=== PATIENT | female | born 1985 | race Caucasian/White ===

== ENCOUNTER 2020-01-27 13:50 | Outpatient (REF) | payer MEDICAID, SELFPAY ==
--- NOTE | 2020-01-27 14:00 | MM_ITS ---
EXAMINATION: MM DIAGNOSTIC DIGITAL BREAST TOMOSYNTHESIS, BILATERAL WITH DIAGNOSTIC STUDY OF THE RIGHT BREAST WELL RIGHT BREAST ULTRASOUND. CLINICAL INFORMATION: Breast lumps The lifetime risk of breast cancer based on the Tyrer-Cuzick Model is 12.8%. COMPARISON: Mammography: 01/04/2016. Patient has had interval studies performed at [facility] and these images will be obtained with addendum and final recommendation given at that time. TECHNIQUE: Digital breast tomosynthesis is performed in both the craniocaudal and mediolateral oblique views along with computer-aided detection (CAD). Synthesized 2D images are generated from the tomosynthesis. Spot magnification views of the right breast in craniocaudal and mediolateral projections also performed. Targeted right breast ultrasound. FINDINGS: The breasts are heterogeneously dense, which may obscure small masses (ACR BI-RADS breast composition Category c). No new abnormal dominant mass or region of architectural distortion is appreciated. There is multiplicity and bilaterality of vascular calcifications with a few new grouping of calcifications about the superior medial aspect of the right breast adjacent to a vessel but not definitely vascular in nature. Recommend obtaining outside study from [facility] for comparison before final recommendation. Targeted ultrasound evaluation to multiple regions of palpable abnormality was then performed. At the 9 o'clock position 6 cm from nipple there is a simple appearing cyst measuring approximately 6 x 2 x 8 mm in size with anechoic lumen and smooth back wall and distal sound enhancement and no internal vascularity. At the 12 o'clock location, approximately 3 cm from the nipple there is a 9 x 4 mm minimally complex cyst with thin septation. No ultrasound abnormality was identified at the 3 o'clock position. Results are provided to the patient at time of visit by the technologist. MM/MM tomosynthesis diagnostic BI IMPRESSION: No specific ultrasound findings to suggest malignancy. Increasing calcifications about the right breast compared to study of 2016 with some interval studies been performed at [facility] since then would be obtained for comparison. ASSESSMENT: BI-RADS 0: Incomplete -waiting for old films RECOMMENDATION: Obtain outside studies from [facility]. This patient's information was entered into a reminder system with a target due date for their next mammogram.
--- NOTE | 2020-01-27 14:01 | US_ITS ---
EXAMINATION: US DIAGNOSTIC ULTRASOUND BREAST, RIGHT CLINICAL INFORMATION: Pain with palpation 9 o'clock position and position in between 12 and 1 o'clock. 1 cm lump palpated at 3 o'clock position. COMPARISON: 01/04/2016 TECHNIQUE: Ultrasound of the right breast is performed with real-time benson scale imaging and color Doppler. FINDINGS: Targeted ultrasound evaluation to multiple regions of palpable abnormality was then performed. At the 9 o'clock position 6 cm from nipple there is a simple-appearing cyst measuring approximately 6 x 2 x 8 mm in size with anechoic lumen and smooth back wall and distal sound enhancement and no internal vascularity. At the 12 o'clock location approximately 3 cm from the nipple there is a 9 x 4 mm minimally complex cyst with thin septation. No ultrasound abnormality was identified at the 3 o'clock position. Results are provided to the patient at time of visit by the technologist. US/US breast RT limited IMPRESSION: No specific ultrasound findings to suggest malignancy. Increasing calcifications about the right breast compared to study of 2016 with some interval studies been performed at [facility] since then would be obtained for comparison. ASSESSMENT: BI-RADS 0: Incomplete - Need outside studies for further evaluation. RECOMMENDATION: Obtain outside studies from [facility].
== END 2020-01-27 13:51 | disposition home or self-care (01) ==
LOC: HO.MAMMO 13:50
PROVIDERS: PCP Internal Medicine; Visit Provider Nurse Practitioner Family
DX: N64.4 Mastodynia (principal); N63.10 Unspecified lump in the right breast, unspecified quadrant
CPT/HCPCS: 76642; 77062; 77066

== ENCOUNTER 2020-02-17 13:57 | Outpatient (REF) | payer MEDICAID, SELFPAY ==
--- NOTE | 2020-02-17 | MM_ITS ---
EXAMINATION: MM DIAGNOSTIC DIGITAL MAMMOGRAPHY, RIGHT CLINICAL INFORMATION: Unable to obtain previous mammography. Magnification views for calcifications of the right breast for better localization. COMPARISON: Mammography: January 27, 2020 and January 04, 2016 TECHNIQUE: Digital mammography is performed in the following views: Spot magnification views in craniocaudal, 90 degree mediolateral, and mediolateral oblique views of the right breast. FINDINGS: The breasts are heterogeneously dense, which may obscure small masses (ACR BI-RADS breast composition Category c). The questioned grouping of calcifications about the retroareolar region of the right breast are seen to have similar appearance to multiple other groupings of calcifications within the breast and some of which have lucent centers and may be vascular in nature. Recommend 6 month follow-up magnification views of the right breast. Results are provided to the patient at time of visit by the technologist. MM/MM added views RT IMPRESSION: Probably benign calcifications right breast. ASSESSMENT: BI-RADS 3: Probably Benign RECOMMENDATION: Diagnostic mammography in 6 months. This patient's information was entered into a reminder system with a target due date for their next mammogram.
== END 2020-02-17 13:58 | disposition home or self-care (01) ==
LOC: HO.MAMMO 13:57
PROVIDERS: PCP Internal Medicine; Visit Provider Internal Medicine
DX: R92.1 Mammographic calcification found on diagnostic imaging of breast (principal)
CPT/HCPCS: 77065

== ENCOUNTER 2020-06-26 11:47 | Emergency (ER) | payer MEDICAID, SELFPAY ==
[2020-06-26 12:29] VITALS: BP 127/90; PULSE 62; RESP 16; TEMP 36.9; O2SAT 100; BMI 22.9
== END 2020-06-26 15:38 | disposition left against medical advice (07) ==
PROVIDERS: Emergency Provider Emergency Medicine
DX: R07.9 Chest pain, unspecified (principal); R42 Dizziness and giddiness; T50.B95A Adverse effect of other viral vaccines, initial encounter; Y92.019 Unspecified place in single-family (private) house as the place of occurrence of the external cause
CPT/HCPCS: 99281; 99282

== ENCOUNTER 2020-08-15 12:01 | Outpatient (REF) | payer MEDICAID, SELFPAY ==
--- NOTE | ~2020-08-15 | MM_ITS ---
EXAMINATION: MM DIAGNOSTIC DIGITAL BREAST TOMOSYNTHESIS, RIGHT CLINICAL INFORMATION: 35-year-old for short interval follow-up probable benign calcifications central and inner right breast. Family history breast cancer maternal aunt. TC score 13%. COMPARISON: Mammography: 02/17/2020, 01/27/2020, 01/04/2016 TECHNIQUE: Digital breast tomosynthesis is performed in both the craniocaudal and mediolateral oblique views along with computer-aided detection (CAD). Synthesized 2D images are generated from the tomosynthesis. Additional magnification CC and magnification ML views are obtained. FINDINGS: There are scattered areas of fibroglandular density (ACR BI-RADS breast composition Category b). There are the parenchymal pattern is similar to prior studies. There is no developing density or interval mass or architectural abnormality. There are some scattered vascular calcifications again seen on the right. The grouped calcifications for follow-up anterior 12:30 o'clock position and mid 3:00 right breast are stable from prior diagnostic exam. They will be reassessed again in 6 months at time of annual bilateral exam. Results are provided to the patient at time of visit by the technologist. MM/MM tomosynthesis diagnostic RT IMPRESSION: No significant changes from prior exam. Probable benign right breast calcifications stable. ASSESSMENT: BI-RADS 3: Probably Benign RECOMMENDATION: Diagnostic mammography at time of annual bilateral exam, due in 6 months. This patient's information was entered into a reminder system with a target due date for their next mammogram.
== END 2020-08-15 12:02 | disposition home or self-care (01) ==
LOC: HO.MAMMO 12:01
PROVIDERS: Visit Provider Nurse Practitioner Family
DX: R92.1 Mammographic calcification found on diagnostic imaging of breast (principal); Z80.3 Family history of malignant neoplasm of breast
CPT/HCPCS: 77061; 77065

== ENCOUNTER 2020-08-27 12:59 | Outpatient (REF) | payer MEDICAID, SELFPAY ==
--- NOTE | ~2020-08-27 | US_ITS ---
EXAMINATION: US VENOUS ULTRASOUND WITH DOPPLER LOWER EXTREMITY, BILATERAL CLINICAL INFORMATION: Bilateral lower extremity pain COMPARISON: None TECHNIQUE: Ultrasound of the deep veins is performed from the hip to the calf with compression sonography and color and pulse Doppler assessment. Spectral analysis with color-flow imaging is performed. FINDINGS: RIGHT: There is normal venous compression and respiratory variation and augmented flow. The visualized common femoral vein, superficial femoral vein, profunda femoral vein, popliteal vein, and the trifurcation region shows no evidence of deep venous thrombosis. There is no significant popliteal fossa cyst. No popliteal artery aneurysm LEFT: There is normal venous compression and respiratory variation and augmented flow. The visualized common femoral vein, superficial femoral vein, profunda femoral vein, popliteal vein, and the trifurcation region shows no evidence of deep venous thrombosis. There is no significant popliteal fossa cyst. No popliteal artery aneurysm If the patient's symptoms persist, followup ultrasound in 5 days 7 days might be of value to exclude proximal propagation from a non-visualized calf vein. US/US venous duplex LE BI IMPRESSION: No acute DVT demonstrated in the bilateral lower extremity.
== END 2020-08-27 13:00 | disposition home or self-care (01) ==
LOC: HO.US 12:59
PROVIDERS: PCP Internal Medicine; Visit Provider Nurse Practitioner Primary Care
DX: M79.604 Pain in right leg (principal); M79.605 Pain in left leg
CPT/HCPCS: 93970

== ENCOUNTER → 2020-09-13 10:23 | Outpatient (BNVA) | payer MEDICAID, SELFPAY | PROVIDERS: PCP Internal Medicine; Visit Provider Surgery Vascular Surgery | DX: I83.11 Varicose veins of right lower extremity with inflammation (principal) | CPT/HCPCS: 99202 ==

== ENCOUNTER 2020-10-08 07:23 | Outpatient (REF) | payer MEDICAID, SELFPAY ==
--- NOTE | ~2020-10-08 | US_ITS ---
EXAMINATION: RIGHT and LEFT LOWER EXTREMITY VENOUS ULTRASOUND (Reflux Exam) CLINICAL INDICATION: leg pain and varicose veins. COMPARISON: None. TECHNIQUE: Color flow triplex imaging and compression Doppler was performed to evaluate both the deep and the superficial systems bilaterally. To evaluate the superficial system, the examination was performed in the upright position. Color-flow Doppler ultrasound and compression ultrasound were utilized. In addition, maneuvers were utilized to demonstrate reflux. FINDINGS: 1. DEEP VENOUS ULTRASOUND OF THE RIGHT LOWER EXTREMITY: Respiratory variation, normal compression and augmented flow are noted in the right common femoral vein as well as the right popliteal vein and there is no evidence of deep venous thrombosis at these locations. There is no evidence of reflux in the deep system in either the common femoral vein or the popliteal vein. There is no evidence of a Brown's cyst. 2. SUPERFICIAL ULTRASOUND WITH DOPPLER OF RIGHT LOWER EXTREMITY: The right great saphenous vein at the saphenofemoral junction measures 5 mm, at the mid thigh 3 mm, hwaeu-pgt-zuoa 2 mm, luryw-ndq-[id number] 2 mm, at mid calf 2 mm and at the ankle measures 2 mm. There is no reflux demonstrated in the right great saphenous vein. The right small saphenous vein measures 1-2 mm and shows no reflux. There is a forensic medical examiner in the proximal thigh diffuse 2 mm and does not demonstrate reflux. 3. DEEP VENOUS ULTRASOUND OF THE LEFT LOWER EXTREMITY: Respiratory variation, normal compression and augmented flow are noted in the left common femoral vein as well as the left popliteal vein and there is no evidence of deep venous thrombosis at these locations. There is no evidence of reflux in the deep system in either the common femoral vein or the popliteal vein. . There is no evidence of a Brown's cyst. 4. SUPERFICIAL ULTRASOUND WITH DOPPLER OF LEFT LOWER EXTREMITY: Left great saphenous vein at the saphenofemoral junction measures 4 mm, at the mid thigh to mm, nkqfk-lrt-dxfn 3 mm, mhhtg-sli-uvpz 1 mm, at mid calf 1 mm and at the ankle measures 1 mm. There is no reflux demonstrated in the left great saphenous vein. The left small saphenous vein measures 1 mm and shows no reflux. US/US venous duplex LE BI IMPRESSION: 1. No evidence of reflux or thrombus in the common femoral veins or popliteal veins bilaterally. 2. The saphenous systems are competent bilaterally.
== END 2020-10-08 07:24 | disposition home or self-care (01) ==
LOC: HO.US 07:23
PROVIDERS: Visit Provider Surgery Vascular Surgery
DX: I83.11 Varicose veins of right lower extremity with inflammation (principal)
CPT/HCPCS: 93970

== ENCOUNTER → 2020-10-16 10:24 | Outpatient (BNVA) | payer MEDICAID, SELFPAY | PROVIDERS: PCP Internal Medicine; Visit Provider Surgery Vascular Surgery | DX: I83.11 Varicose veins of right lower extremity with inflammation (principal) | CPT/HCPCS: 99212 ==

== ENCOUNTER 2021-02-14 12:50 | Outpatient (REF) | payer MEDICAID, SELFPAY ==
--- NOTE | ~2021-02-14 | MM_ITS ---
EXAMINATION: MM DIAGNOSTIC DIGITAL BREAST TOMOSYNTHESIS, BILATERAL CLINICAL INFORMATION: Due for yearly. Also follow-up probable benign calcifications central and inner right breast. The lifetime risk of breast cancer based on the Tyrer-Cuzick Model is 13%. COMPARISON: Mammography: 08/15/2020, 02/17/2020, 01/27/2020 (BI-RADS 0), 01/04/2016 (baseline). TECHNIQUE: Digital breast tomosynthesis is performed in both the craniocaudal and mediolateral oblique views along with computer-aided detection (CAD). Synthesized 2D images are generated from the tomosynthesis. Additional magnification right CC and magnification right ML views are obtained. FINDINGS: There are scattered areas of fibroglandular density (ACR BI-RADS breast composition Category b). Parenchymal pattern is similar to prior exams and there is no interval mass or architectural abnormality or developing density. The axilla are unremarkable. The skin contours are smooth. There are no significant changes. Again, there are scattered bilateral vascular and grouped relatively coarse calcifications, many with lucent centers. Calcifications on right for follow-up anterior 12:30 o'clock position and mid 3:00 position are similar to prior diagnostic exams and will be reassessed again at next bilateral annual mammography, due in 12 months. Results are provided to the patient at time of visit by the technologist. MM/MM tomosynthesis diagnostic BI IMPRESSION: There are no significant changes from prior study. Probable benign right breast calcifications for follow-up are stable. ASSESSMENT: BI-RADS 3: Probably Benign RECOMMENDATION: Diagnostic mammography at time of next annual exam, due in 12 months. This patient's information was entered into a reminder system with a target due date for their next mammogram.
== END 2021-02-14 12:51 | disposition home or self-care (01) ==
LOC: HO.MAMMO 12:50
PROVIDERS: PCP Internal Medicine; Visit Provider Nurse Practitioner Family
DX: R92.1 Mammographic calcification found on diagnostic imaging of breast (principal)
CPT/HCPCS: 77062; 77066

== ENCOUNTER 2021-08-14 08:45 | Outpatient (REF) | payer MEDICAID, SELFPAY ==
--- NOTE | 2021-08-14 | EMG_ITS ---
This is a 36-year-old woman with 1 year history of pain in the whole body, upper and lower extremities diffusely that occurs about twice a week, lasting 15 to 20 minutes. PHYSICAL EXAMINATION: Neurological examination is normal. Probable fibromyalgia, rule out peripheral neuropathy. Nerve conduction EMG study: Normal electrodiagnostic study of the left upper and left lower extremities with no evidence of carpal tunnel syndrome or nerve entrapment or generalized neuropathy. Normal EMG of the left C5-T1 and left L4-S1 innervated muscles. MD HIMANSHU Bliss/CYRUS / [id number]
== END 2021-08-14 08:46 | disposition home or self-care (01) ==
LOC: HO.NEURO 08:45
PROVIDERS: PCP Internal Medicine; Visit Provider Internal Medicine
DX: M79.604 Pain in right leg (principal); M79.605 Pain in left leg; M79.641 Pain in right hand; M79.642 Pain in left hand
CPT/HCPCS: 95886; 95913

== ENCOUNTER 2022-02-17 12:17 | Outpatient (REF) | payer MEDICAID, SELFPAY ==
--- NOTE | ~2022-02-17 | MM_ITS ---
EXAMINATION: MM DIAGNOSTIC DIGITAL BREAST TOMOSYNTHESIS, BILATERAL US DIAGNOSTIC ULTRASOUND BREAST, LEFT CLINICAL INFORMATION: 36-year-old with family history premenopausal breast cancer (maternal aunt), ovarian cancer (mother), other cancers. Probable benign calcifications right breast for follow-up. COMPARISON: Mammography: 02/14/2021, 08/15/2020, 02/17/2020, 01/27/2020 (BI-RADS 0), 01/04/2016 TECHNIQUE: Digital breast tomosynthesis is performed in both the craniocaudal and mediolateral oblique views along with computer-aided detection (CAD). Synthesized 2D images are generated from the tomosynthesis. Additional views are obtained: Magnification right CC, magnification right LM x2. Ultrasound left breast is targeted to the anterior medial breast. Grayscale imaging and color Doppler are performed without and with harmonics. FINDINGS: There are scattered areas of fibroglandular density (ACR BI-RADS breast composition Category b). There are scattered bilateral stable calcifications similar to prior exams. Right breast calcifications for follow-up anterior 12:30 and mid 3:00 are similar to prior diagnostic studies and now considered to be benign. There is no architectural abnormality or developing density. The axilla and skin contours are unremarkable. Left breast has new small circumscribed nodule under 1 cm central 3:00 position approximately 3 cm from nipple. No interval nodularity on right. Ultrasound left breast confirms a simple cyst 3:00 position 3 cm from nipple approximately 0.4 cm corresponding to the finding on mammography. There is no solid mass or architectural abnormality or focal duct ectasia. Results are discussed with the patient at time of visit. Genetic testing options were discussed. MM/MM tomosynthesis diagnostic BI IMPRESSION: -No mammographic evidence of malignancy. -Right breast calcifications for follow-up are similar to prior diagnostic studies and now considered to be benign. -New simple cyst left breast 3:00 position under 1 cm. ASSESSMENT: BI-RADS 2: Benign RECOMMENDATION: Bilateral mammography, no later than age 40, earlier as clinical risk factors warrant. This patient's information was entered into a reminder system with a target due date for their next mammogram.
== END 2022-02-17 12:18 | disposition home or self-care (01) ==
LOC: HO.MAMMO 12:17
PROVIDERS: PCP Internal Medicine; Visit Provider Internal Medicine
DX: R92.1 Mammographic calcification found on diagnostic imaging of breast (principal)
CPT/HCPCS: 76642; 77062; 77066

== ENCOUNTER 2022-06-09 09:28 | Emergency (ER) | payer MEDICAID, SELFPAY ==
[2022-06-09 09:29] VITALS: BP 151/99; PULSE 100; RESP 16; TEMP 36.8; O2SAT 97; BMI 24.6
--- NOTE | 2022-06-09 09:45 | ED.GENADULT ---
HPI - General Adult General Chief complaint: General Medical Stated complaint: diff swallowing Time Seen by Provider: 06/09/22 09:44 Source: patient Mode of arrival: ambulatory Limitations: no limitations History of Present Illness HPI narrative: Patient is a 36 year old assigned female at with no reported medical history presenting to the emergency department today with a sore throat. Patient states that for the last 5 days she has had a sore throat and pain with swallowing. Patient denies any dizziness, lightheadedness, abdominal pain, nausea, vomiting, fever, chills, blurry vision, double vision, loss of vision, chest pain, difficulty breathing, shortness of breath, back pain, night sweats, pain with urination, increased urinary frequency, increased urinary urgency, blood in her urine or stool, syncope or a near syncopal episode, recent trauma or falls, bowel incontinence, bladder incontinence, bowel retention, bladder retention, or any other complaints at this time. Onset (ago): day(s) (5) Severity: mild Severity scale (1-10): 2 Quality: dull Pain Consistency: constant Relieving factors: none Exacerbating factors: none Associated symptoms: denies other symptoms Treatments prior to arrival: none Related Data Home Medications Medication Instructions Recorded Confirmed naproxen 125 mg/5 mL oral 250 mg PO BID PRN 09/13/20 suspension Previous Rx's Medication Instructions Recorded penicillin V potassium 500 mg 500 mg PO BID 10 days #20 tabs 06/09/22 tablet prednisone 20 mg tablet 20 mg PO DAILY 7 days #7 tabs 06/09/22 Allergies Allergy/AdvReac Type Severity Reaction Status Date / Time acetaminophen Allergy Unknown hives Verified 09/13/20 10:31 [Tylenol Cold Head Congestion] dextromethorphan Allergy Unknown HIVES * Unverified 09/13/20 10:31 [From TYLENOL COLD CAN TAKE MULTI-SYMPTOM] TYLENOL ALONE guaifenesin Allergy Unknown HIVES Unverified 09/13/20 10:31 [From TYLENOL COLD MULTI-SYMPTOM] phenylephrine Allergy Unknown HIVES Unverified 09/13/20 10:31 [From TYLENOL COLD MULTI-SYMPTOM] pseudoephedrine Allergy Unknown HIVES Unverified 09/13/20 10:31 [From TYLENOL COLD MULTI-SYMPTOM] Review of Systems Constitutional: Constitutional: Reports no additional constitutional complaints, Denies chills, Denies fever(s) and Denies night sweats Eyes: Eyes: Reports no additional eye complaints, Denies blurry vision, Denies change in vision, Denies diplopia, Denies eye discharge, Denies loss of vision and Denies eye pain ENT: Denies dizziness and Reports sore throat Cardiovascular: Cardiovascular: Reports no additional cardiovascular complaints, Denies chest pain, Denies lightheadedness, Denies Loss of Consciousness and Denies dyspnea Respiratory: Respiratory: Reports no additional respiratory complaints and Denies dyspnea Gastrointestinal: Gastrointestinal: Reports no additional gastrointestinal complaints, Denies abdominal pain, Denies melena, Denies hematochezia, Denies change in bowel habits and Denies change in stool character Genitourinary: Genitourinary: Denies hematuria, Denies urinary frequency, Denies dysuria, Denies urinary incontinence, Denies urinary hesitancy and Denies urinary urgency Musculoskeletal: Musculoskeletal: Reports no additional musculoskeletal complaints, Denies numbness and Denies tingling Neurologic: Denies dizziness, Denies loss of vision, Denies numbness and Denies tingling Psychiatric: Psychiatric: Reports no additional psychiatric complaints Endocrine: Endocrine: Reports no additional endocrine complaints Hematologic/Lymphatic: Hematologic/Lymphatic: Reports no additional hematologic/lymphatic complaints Allergic/Immunologic: Allergic/Immunologic: Reports no additional allergic/immunologic complaints PMFSH Past Medical History Attestation statement: The following information was validated with the patient. Source: old records reviewed and nursing notes reviewed Social History Social History Patient Tobacco Use Status: Never used Tobacco Advance Directives: No Advance Directives Information Provided: Yes Physical Exam ED Vital Signs: Vital Signs - 24 hr 06/09/22 09:29 06/09/22 11:10 Temperature 98.3 F 97.2 F Pulse Rate 100 69 Respiratory Rate 16 17 Blood Pressure 151/99 H 115/74 Pulse Oximetry 97 98 Oxygen Delivery Method Room Air Room Air BMI result Body Mass Index 24.6 Const General: cooperative, no acute distress, alert and awake Nutritional Appearance: well nourished Orientation/consciousness: patient oriented x3 Limitations: no limitations HENMT Head: Yes normal to inspection and Yes atraumatic Ears: hearing grossly normal bilaterally and external ears normal General nose exam: Normal external nose present, no nasal discharge noted and no epistaxis Face and sinus: Yes normal facial exam, No abrasion and No laceration Mouth: Normal oral and palatal mucosa present, no drooling and no muffled voice Throat: Yes posterior oropharynx abnormal (erythema) Eyes General: appearance normal, both eyes and all related structures Periorbital: periorbital findings normal Eyelids: Yes eyelids normal Conjunctivae: conjunctivae normal Pupils: Equal, round and reactive pupils present EOM: EOMs intact bilaterally Neck Neck: Yes normal visual inspection, Yes full ROM and Yes no lymphadenopathy Chest Chest palpation & inspection: normal inspection of the chest Resp Effort & Inspection: normal respiratory effort and able to speak in complete sentences Auscultation: clear to auscultation bilaterally Cardio Rate: regular rate Rhythm: regular rhythm GI Inspection: Yes normal to inspection Neuro General: patient oriented x3 and moves all extremities Cranial nerves: Yes Equal, round and reactive pupils present Cognition (Neuro): normal cognition Motor exam (neuro): 5/5 motor strength present throughout Sensory Exam: Normal double simultaneous stimulation for sensation Coordination: [id number]-[id number] test normal Extrem General: Yes normal to inspection, Yes full ROM and Yes capillary refill normal Psych Appearance: grossly normal Mental Status: mental status grossly normal Affect: normal affect Attitude: cooperative Thought process: Normal thought process present Thought content: Normal thought content present Insight: Good insight present (Psych) Medical Decision Making Medical Decision Making MDM Narrative: Patient is a 36 year old assigned female at with no reported medical history presenting to the emergency department today with a sore throat. Patient's physical exam showed posterior oropharynx erythema. Patient's strep test was negative. I explained my physical exam findings as well as all test results to the patient. I answered all questions asked by the patient. Given the patient's duration of symptoms, will cover for bacterial infection. I stressed the importance of the patient taking her medication as prescribed. I stressed the importance of the patient following up with her primary care provider. I stressed the importance of the patient returning to the emergency department immediately if her symptoms were to worsen or if she were to develop any dizziness, shortness of breath, difficulty breathing, chest pain, blurry vision, loss of vision, nausea, vomiting, abdominal pain, fever, chills, back pain, or any other complaints. Patient verbalized agreement and understanding with this treatment plan and discharge. Differential Diagnosis Differential Diagnoses: The differential diagnosis associated with the presentation includes pharyngitis Lab Data [facility] Lab Attestation statement: I reviewed the patient's lab results. Labs: Lab Results 06/09/22 Range/Units 09:43 S. pyogenes GrpA RUBEN Negative (Negative) Discharge Plan Discharge Clinical Impression: Pharyngitis Patient Disposition: Home, Self-Care Instructions: Pharyngitis (ED) Additional Instructions: Follow up with your primary care provider. Return to the emergency department immediately if your symptoms worsen or if you develop any dizziness, shortness of breath, difficulty breathing, chest pain, blurry vision, loss of vision, nausea, vomiting, abdominal pain, fever, chills, back pain, or any other complaints. Prescriptions: New prednisone 20 mg tablet 20 mg PO DAILY 7 Days Qty: 7 0RF penicillin V potassium 500 mg tablet 500 mg PO BID 10 Days Qty: 20 0RF Referrals: Melissa Grubbs MD [Primary Care Provider] - Stand Alone Forms: Work/School Release Interventions: ED Discharge Assessment Last Done: 06/09/22 11:23 Discharge Date/Time: 06/09/22 11:24 Print Language: Thai
[2022-06-09 09:56] LABS: IDNOW Serial# 08D9AD1C; Strep A Nucleic Acid Negative (Negative)
[2022-06-09 11:10] VITALS: BP 115/74; PULSE 69; RESP 17; TEMP 36.2; O2SAT 98
== END 2022-06-09 11:24 | disposition home or self-care (01) ==
PROVIDERS: Emergency Provider Student in an Organized Health Care Education/Training Program; PCP Internal Medicine
DX: J02.9 Acute pharyngitis, unspecified (principal); R13.10 Dysphagia, unspecified
CPT/HCPCS: 36415; 87651; 99282; 99283

== ENCOUNTER 2023-02-27 07:32 | Outpatient (REF) | payer MEDICAID, SELFPAY | END 2023-02-27 07:33 | disposition home or self-care (01) | LOC: HO.MAMMO 07:32 | PROVIDERS: Visit Provider Internal Medicine | DX: Z12.31 Encounter for screening mammogram for malignant neoplasm of breast (principal) | CPT/HCPCS: 77063; 77067 ==

== ENCOUNTER → 2023-02-27 08:00 | Outpatient (BNV) | payer MEDICAID, SELFPAY | PROVIDERS: Visit Provider Radiology Diagnostic Radiology | DX: Z12.31 Encounter for screening mammogram for malignant neoplasm of breast (principal) | CPT/HCPCS: 77063; 77067 ==

== ENCOUNTER 2024-01-25 10:20 | Emergency (ER) | payer MEDICAID, SELFPAY ==
[2024-01-25 11:00] VITALS: BP 141/100; PULSE 94; RESP 20; TEMP 37; O2SAT 98; BMI 34.5
--- NOTE | 2024-01-25 14:05 | ED_ITS ---
HPI - General Adult General Chief complaint: Skin/Abscess/Foreign Body Stated complaint: buttock abscess Time Seen by Provider: 01/25/24 14:05 Source: patient Mode of arrival: ambulatory Limitations: no limitations History of Present Illness ED Provider: Herrera GUAMAN narrative: Patient is a 38-year-old female presenting to the emergency department with complaint of pain and concern for abscess to left buttock since . Reports history of prior buttock abscess requiring I&D in the past. Symptoms now feel similar. Denies fevers, chills body aches. Unsure of spontaneous drainage. States pain is severe and she can't sit due to the pain. complaint: buttock abscess Onset (ago): day(s) Location: buttocks and left Radiation: non-radiation Severity: severe and similar to prior episodes Quality: aching Pain Consistency: constant Relieving factors: none Exacerbating factors: other (sitting/pressure) Associated symptoms: denies other symptoms Treatments prior to arrival: none Related Data Home Medications ?Medication ?Instructions ?Recorded ?Confirmed naproxen 125 mg/5 mL oral 250 mg PO BID PRN 09/13/20 suspension Previous Rx's ?Medication ?Instructions ?Recorded penicillin V potassium 500 mg 500 mg PO BID 10 days #20 tabs 06/09/22 tablet prednisone 20 mg tablet 20 mg PO DAILY 7 days #7 tabs 06/09/22 doxycycline hyclate 100 mg capsule 100 mg PO BID #14 caps 01/25/24 oxycodone 5 mg tablet 5 mg PO Q8H PRN severe pain (scale 01/25/24 score 7-10) #6 tabs Allergies Allergy/AdvReac Type Severity Reaction Status Date / Time acetaminophen Allergy Unknown hives Verified 01/25/24 11:01 [Tylenol Cold Head Congestion] dextromethorphan Allergy Unknown HIVES * Verified 01/25/24 15:04 [From TYLENOL COLD CAN TAKE MULTI-SYMPTOM] TYLENOL ALONE guaifenesin Allergy Unknown HIVES Verified 01/25/24 15:04 [From TYLENOL COLD MULTI-SYMPTOM] phenylephrine Allergy Unknown HIVES Verified 01/25/24 15:04 [From TYLENOL COLD MULTI-SYMPTOM] pseudoephedrine Allergy Unknown HIVES Verified 01/25/24 15:04 [From TYLENOL COLD MULTI-SYMPTOM] Review of Systems 2 Review of Systems: As per HPI. Yes all other systems are reviewed and are negative Constitutional: Constitutional: Reports as per [facility] Social History Social History Unable to assess alcohol history related to: Unknown Patient Tobacco Use Status: Never used Tobacco Use of substances other than those prescribed or required for medical reasons: Unknown Advance Directives: No Advance Directives Information Provided: Yes Physical Exam ED Vital Signs: Vital Signs - 24 hr 01/25/24 11:00 01/25/24 15:00 Temperature 98.6 F 98.5 F Pulse Rate 94 90 Respiratory Rate 20 19 Blood Pressure 141/100 H 138/90 H Pulse Oximetry 98 98 Oxygen Delivery Method Room Air Room Air BMI result Body Mass Index 34.5 Vital signs have been reviewed and appear to be correct. Blood pressure elevated. Heart rate normal. Respiratory rate normal. Temperature normal. Oxygen saturation normal. Const General: cooperative, healthy appearing and no acute distress Orientation/consciousness: oriented to person, oriented to place, oriented to time and patient oriented x3 Limitations: no limitations [facility] Head: Yes normocephalic and Yes atraumatic Ears: external ears normal General nose exam: Normal external nose present Face and sinus: Yes face symmetric Mouth: oropharynx normal and moist mucous membranes Throat: Yes uvula midline Eyes Pupils: Equal, round and reactive pupils present Neck Neck: Yes normal visual inspection and Yes supple Resp Effort & Inspection: normal respiratory effort and able to speak in complete sentences Auscultation: clear to auscultation bilaterally Cardio Rate: regular rate Rhythm: regular rhythm Heart sounds: S1 normal heart sound present and S2 normal heart sound present GI Palpation (GI): Soft to palpation and nontender Auscultation: normoactive bowel sounds General: Yes no CVA tenderness Back/Spine/Pelvis Back: no CVA tenderness Skin Other: Exam chaperoned by JIMMY Bermudez tech General skin exam: elasticity normal and turgor normal Full body images: 2 1. 2cm diameter area of erythema, fluctuance, and tenderness to left medial buttock without spontaneous drainage Neuro General: oriented to person, oriented to place, oriented to time, patient oriented x3, moves all extremities, no focal motor deficits and CN's II-XI intact bilaterally Cranial nerves: Yes Equal, round and reactive pupils present Cognition (Neuro): normal cognition Extrem General: Yes full ROM, Yes no pedal edema and Yes no calf tenderness Psych Mental Status: mental status grossly normal Affect: normal affect Thought process: Normal thought process present Medications Administered Discontinued Medications Generic Name Dose Route Start Last Admin Trade Name Landy PRN Reason Stop Dose Admin Lidocaine HCl 5 ml 01/25/24 15:37 01/25/24 15:42 Lidocaine Hcl 1 % Mpf 5 Ml Vial INFILTRATI 01/25/24 15:38 5 ml ONCE ONE Administration Ondansetron HCl 4 mg 01/25/24 15:35 01/25/24 15:40 Ondansetron Odt 4 Mg Tab.Rapdis TRANSLINGU 01/25/24 15:36 4 mg ONCE ONE Administration Oxycodone HCl 5 mg 01/25/24 14:36 01/25/24 15:06 Oxycodone Hcl Immed Release 5 Mg Tablet PO 01/25/24 14:37 5 mg ONCE ONE Administration Procedures Abscess I/D Site: other (buttock) Side (if applicable): left Sedation/analgesia: other (oxycodone) Local Anesthetic: lidocaine 1% Amount of anesthesia used (mL): 3 Technique: incised with blade Amount of fluid expressed (mL): 5 Sent for culture/gram staining?: No Irrigation: No Packing used?: none Complications: pain Medical Decision Making Medical Decision Making [facility] Narrative: Patient is a 38-year-old female presenting to the emergency department with complaint of pain and concern for abscess to left buttock since . On exam patient is awake, A+Ox3, VS WNL, afebrile, normal neurological exam without focal deficits, physical exam findings as above. Given reported symptoms and physical exam findings, initial differential includes abscess, folliculitis, cellulitis. Patient medicated with oxycodone prior to procedure as area extremely tender to touch. Abscess incised and drained as per procedure note. Patient tolerated well. Will start patient on doxycycline, advised Sitz baths. Will send a few oxycodone for severe pain. Return precautions discussed. Patient verbalized understanding of and agreement with plan. Differential Diagnosis Differential Diagnoses: The differential diagnosis associated with the presentation includes As per [facility] External Record Review External record reviewed: Inpatient record, Office record and Outpatient record Prescription Management I considered prescription management with: Pain Medication and Antibiotic Discharge Plan Discharge Clinical Impression: Abscess of buttock, left Patient Disposition: Home, Self-Care Instructions: Abscess (ED), Sitz Bath (DC), Abscess Follow-up (ED), Abscess Incision and Drainage (DC) Additional Instructions: You were evaluated in the ER for an abscess. Please keep the area surrounding the abscess clean and dry. You were given a prescription for antibiotics, please take the antibiotics as directed for the full course of the medication. You should perform a skin check of the area daily. You can use Tylenol or ibuprofen per package directions as needed for pain. If necessary, you can alternate these medications so that you take one medication every 3 hours. For instance, at noon take ibuprofen, then at 3:00 p.m. take Tylenol, then at 6:00 p.m. take ibuprofen. You are being prescribed oxycodone for severe pain. We recommend performing Sitz baths several times daily. Please schedule an appointment with your primary care physician as soon as possible for follow-up. Return to the emergency department if you experience fevers greater than 100.4? F, increased in area of redness or swelling, increasing amount of discharge from the area, increased tenderness around the area, or any other concerning symptoms. Prescriptions: New doxycycline hyclate 100 mg capsule 100 mg PO BID Qty: 14 0RF oxycodone 5 mg tablet 5 mg PO Q8H PRN (Reason: severe pain (scale score 7-10)) Qty: 6 0RF Rx Instructions: Partial Fill upon patient request. No Action prednisone 20 mg tablet 20 mg PO DAILY 7 Days Qty: 7 0RF penicillin V potassium 500 mg tablet 500 mg PO BID 10 Days Qty: 20 0RF Stand Alone Forms: Work/School Release Print Language: Qatari
[2024-01-25 15:00] VITALS: BP 138/90; PULSE 90; RESP 19; TEMP 36.9; O2SAT 98
[2024-01-25] MEDS: oxyCODONE HCl Immed Release 5 MG TABLET PO (15:06)
[2024-01-25] MEDS: Ondansetron ODT 4 MG TAB.RAPDIS TRANSLINGU (15:40)
[2024-01-25] MEDS: Lidocaine HCl 1 % MPF 5 ML VIAL INFILTRATI (15:42)
--- NOTE | 2024-01-25 15:43 | PC.NURSE ---
pt a&ox3, vss, pt medicated for nausea, given gingerale. provider to use lido for procedure
--- NOTE | 2024-01-25 17:01 | PC.NURSE ---
I&D performed by provider vss, pt to discharge home
[2024-01-25 17:17] VITALS: BP 136/88; PULSE 88; RESP 18; TEMP 36.7; O2SAT 98
== END 2024-01-25 17:18 | disposition home or self-care (01) ==
PROVIDERS: Emergency Provider Emergency Medicine; PCP Internal Medicine
DX: L02.31 Cutaneous abscess of buttock (principal)
CPT/HCPCS: 10060; 99284; J2003

== ENCOUNTER 2024-03-11 07:48 | Outpatient (REF) | payer MEDICAID, SELFPAY | END 2024-03-11 07:49 | disposition home or self-care (01) | LOC: HO.MAMMO 07:48 | PROVIDERS: PCP Internal Medicine; Visit Provider Internal Medicine | DX: Z12.31 Encounter for screening mammogram for malignant neoplasm of breast (principal) | CPT/HCPCS: 77063; 77067 ==

== ENCOUNTER → 2024-03-11 08:00 | Outpatient (BNV) | payer MEDICAID, SELFPAY | PROVIDERS: PCP Internal Medicine; Visit Provider Internal Medicine | DX: Z12.31 Encounter for screening mammogram for malignant neoplasm of breast (principal) | CPT/HCPCS: 77063; 77067 ==

== ENCOUNTER 2024-06-03 15:35 | Outpatient (REF) | payer MEDICAID, SELFPAY ==
--- NOTE | ~2024-06-03 | XR_ITS ---
EXAMINATION: XR HAND, RIGHT CLINICAL INFORMATION: Persistent pain in middle and 5th finger despite lack of accident/injury COMPARISON: None available. TECHNIQUE: PA, lateral, and oblique views of the right hand. FINDINGS: The bones and soft tissues are normal. No fracture. Alignment is anatomic. Joint spaces are maintained. No erosions or soft tissue calcifications. XR/XR hand RT min 3V IMPRESSION: Unremarkable right hand exam. Electronically signed by: Lucas Peraza MD 06/03/2024 04:06 PM EDT
--- NOTE | ~2024-06-03 | XR_ITS ---
EXAMINATION: XR HAND, LEFT CLINICAL INFORMATION: persistent pain and finger swelling in middle and ring finger COMPARISON: None available. TECHNIQUE: PA, lateral, and oblique views of the left hand. FINDINGS: The bones and soft tissues are normal. No fracture. Alignment is anatomic. Joint spaces are maintained. No erosions or soft tissue calcifications. XR/XR hand LT min 3V IMPRESSION: Normal left hand. Electronically signed by: Lucas Peraza MD 06/03/2024 04:07 PM EDT
--- OUTSIDE RECORDS SUMMARY | 2024-06-03 17:23 | XMS_ITS | Encounter Summary ---
Author Organization [facility] Address [address] [place] [address] [address] [place] [address] Care Team Providers Care Razor Grinder Name Role Phone Melissa Grubbs MD Primary Care Provide r Encounter Details Date Type Department Care Team (Latest Contact Info) Description 06/03/2024 Travel Social History Tobacco Use Types Packs/Day Years Used Date Smoking Tobacco: Never Passive Smoke Exposure: Never Smokeless Tobacco: Never Comments Unknown Sex and Gender Information Value Date Recorded Sex Assigned at Female 01/13/2022 10:17 AM EDT Legal Sex Female 10:17 AM EDT Gender Identity Female 01/13/2022 10:17 AM EDT Sexual Orientation Straight 01/13/2022 10 :17 AM EDT documented as of this encounter Plan of Treatment Not on file documented as of this encounter Visit Diagnoses Not on filedocumented in this encounter Care Teams Razor Grinder Relationship Specialty Start Date End Date Melissa Grubbs MD [address] [place] [address] PCP - General Family Medicine 04/13/19 documented as of this encounter
--- OUTSIDE RECORDS SUMMARY | 2024-06-03 17:23 | XMS_ITS | Encounter Summary ---
Author Organization [facility] Address [address] [place] [address] [address] [place] [address] Care Team Providers Care Alignment Specialist Name Role Phone Melissa Grubbs MD Primary Care Provide r Reason for Visit * Reason Onset Date Comments Chart Prep 06/02/2024 Encounter Details Date Type Department Care Team (Late st Contact Info) Description 06/02/2024 Telephone [facility] MEDICINE [address] [place], [place] [phone] Melissa Grubbs MD [address] [place], [place] [phone] Chart Prep Social History Tobacco Use Types Packs/Day Years Used Date Smoking Tobacco: Never Passive Smoke Exposure: Never Smokeless Tobacco: Never Comments Unknown Sex and Gender Information Value Date Recorded Sex Assigned at Female 01/13/2022 10:17 AM EDT Legal Sex Female 10:17 AM EDT Gender Identity Female 01/13/2022 10:17 AM EDT Sexual Orientation Straight 01/13/2022 10 :17 AM EDT documented as of this encounter Miscellaneous Notes * Telephone Encounter - Ehsan Ramos [place] - 06/02/2024 4:23 PM EDT Chart Prep Labs: not applicable Images: not applicable Vaccines due: yes Referrals: pending appt Screenings: STI screening Overdue care gaps: SDOH documented in this encounter Plan of Treatment Not on file documented as of this encounter Visit Diagnoses Not on filedocumented in this encounter Care Teams Alignment Specialist Relationship Specialty Start Date End Date Melissa Grubbs MD [address] [place] [phone] PCP - General Family Medicine 04/13/19 documented as of this encounter
--- OUTSIDE RECORDS SUMMARY | 2024-06-03 17:23 | XMS_ITS | Encounter Summary ---
Author Organization [facility] Address [address] [facility] [address] [place] [address] Care Team Providers Care Manager Media Name Role Phone Melissa rGubbs MD Primary Care Provide r Reason for Visit * Reason Onset Date Comments triage nurse 06/02/2024 Encounter Details Date Type Department Care Team (Late st Contact Info) Description 06/02/[address] [facility] MEDICINE [address] [place], [place] [phone] Melissa Grubbs MD [address] [place], [place] [phone] triage nurse Social History Tobacco Use Types Packs/Day Years [...] encounter Miscellaneous Notes * Telephone Encounter - Halle Mcfarland LPN - 06/02/2024 1:41 PM EDT Triage call returned to patient who reports concern of increased pain in right hand ,middle and 5thfingers. Patient without accident or injury. Is right hand dominant. Works doing cleaning. Has noted increased pain from finger tip to just below knuckle in those fingers. No noted swelling but reports that they appear to be bending. Family history of RA and patient is concerned. Disposition reviewed and patient in agreement with plan. ASK/A.Gabino ORR tomorrow at 315pm. Protocol Used: Finger Pain (Adult) Protocol-Based Disposition: See in Office or Video Visit within 3 Days Video visit offer not recorded Positive Triage Question: * Moderate pain (e.g., interferes with normal activities) and present > 3 days * All higher-acuity triage questions were negative Care Advice Discussed: * Pain Medicines * Reasons To Call Back - Fever occurs - Redness or swelling appears - Pain lasts over 7 days - You become worse * Telephone Encounter - Shannon Treadwell - 06/02/2024 1:28 PM EDT Symptom: Hand or Wrist Pain - Not From Injury Outcome: Schedule an appointment to be seen within 24 hours Reason: Caller denied all higher acuity questions The caller accepted this outcome. [phone] Pt has concerns, states has a family history of rheumatoid arthritis. documented in this encounter Plan of Treatment Not on file documented as of this encounter Visit Diagnoses Not on filedocumented in this encounter Care Teams Manager Media Relationship Specialty Start Date End Date Melissa Grubbs MD [address] [place] [phone] PCP - General Family Medicine 04/13/19 documented as of this encounter
--- OUTSIDE RECORDS SUMMARY | 2024-06-03 17:23 | XMS_ITS | Encounter Summary ---
Author Organization [facility] Address [address] [place] [address] [address] [place] [address] Care Team Providers Care Pin Sorter And Bagger Name Role Phone Melissa Grubbs MD Primary Care Provide r Reason for Visit * Reason Comments Hand Pain Encounter Details Date Type Department Care Team (Late st Contact Info) Description 06/03/2024 3:15 PM EDT Office Visit [facility] [address] [place], [place] [phone] Grace Lloyd CNP [address] [place], [place] [phone] Family history of rheumatoid arthritis (Primary Dx) Social History Tobacco Use Types Packs/Day Years Used Date Smoking Tobacco: Never Passive Smoke Exposure: Never Smokeless Tobacco: Never Comments Unknown Sex and Gender Information Value Date Recorded Sex Assigned at Female 01/13/2022 10:17 AM EDT Legal Sex Female 10:17 AM EDT Gender Identity Female 01/13/2022 10:17 AM EDT Sexual Orientation Straight 01/13/2022 10 :17 AM EDT documented as of this encounter Last Filed Vital Signs Vital Sign Reading Time Taken Comments Blood Pressure 108/73 06/03/2024 2:54 PM EDT Pulse 75 06/03/2024 2:54 PM EDT Temperature 36.6 ??C (97.8 ??F) 06/03/2024 2:54 PM ED T Respiratory Rate 18 06/03/2024 2:54 PM EDT Oxygen Saturation 99% 06/03/2024 2:54 PM EDT Inhaled Oxygen Concentration - - Weight 57.6 kg (127 lb) 06/03/2024 2:54 PM EDT Height - - Body Mass Index 26.54 10/12/2023 11:04 AM EDT documented in this encounter Progress Notes * Grace Lloyd CNP - 06/03/2024 3:15 PM EDT Subjective Patient ID: Ada Marshall is a 38 y.o. female who presents for R finger pain in middle and 5th fingers. Denies recent accident or injury. R hand dominant. She endorses numbness and tingling in the the tips of her fingers in her r hand. She reports she had a surgery in her r arm in the past. She denies arthralgias in her knees but endorses them in her elbows and in her shoulders. She reports that the pain is intermittent and fluctuates based on the weather. Reports her ROM is intact in her finger and wrist joints bilaterally but her right finger joints feel tight . Denies fever, chills. Positive family hx for RA so patient is concerned. Cleans for work. Review of Systems Constitutional: Negative for chills, fatigue and fever. HENT: Negative. Eyes: Negative. Respiratory: Negative for cough and shortness of breath. Cardiovascular: Negative for chest pain and palpitations. Endocrine: Negative. Genitourinary: Negative. Musculoskeletal: Positive for arthralgias and joint swelling. Negative for gait problem, myalgias and neck pain. Skin: Negative. Neurological: Negative. Hematological: Negative. Psychiatric/Behavioral: Negative. Objective Vitals: 06/03/24 1454 BP: 108/73 Pulse: 75 Resp: 18 Temp: 97.8 ??F (36.6 ??C) SpO2: 99% Physical Exam Constitutional: Appearance: Normal appearance. She is normal weight. Cardiovascular: Rate and Rhythm: Normal rate and regular rhythm. Pulses: Normal pulses. Heart sounds: Normal heart sounds. No murmur heard. No friction rub. No gallop. Pulmonary: Effort: Pulmonary effort is normal. No respiratory distress. Breath sounds: Normal breath sounds. No wheezing or rales. Musculoskeletal: Right hand: Tenderness present. Left hand: Tenderness present. Comments: +tenderness, +swelling in PIP joints of middle and ring finger bilaterally Neurological: General: No focal deficit present. Mental Status: She is alert and oriented to person, place, and time. Psychiatric: Mood and Affect: Mood normal. Behavior: Behavior normal. Thought Content: Thought content normal. Judgment: Judgment normal. Assessment/Plan Problem List Items Addressed This Visit None Visit Diagnoses Family history of rheumatoid arthritis - Primary Relevant Orders Rheumatoid Factor CBC auto differential C-reactive Protein Sed Rate by Modified Westergren Comprehensive Metabolic Panel Cyclic Citrullinated Peptide (CCP) Antibody (IgG) XR Hand 3+ Views Right JYOTSNA Screen,IFA, with Reflex to Titer and Pattern XR Hand 3+ Views Left Pt reports that pain is tolerable and is not constant, she is just expressing more worry about a possible dx for RA d/t family hx Plan to obtain bloodwork to r/o RA, see orders Will also obtain x rays of both hands Will plan to call pt with results once finalized and will provide required referrals/tx as necessary Pt agreeable with plan [facility]RY Attestation MANAGER PSYCHIATRY Resident Attestation: Patient was seen and evaluated by Grace Lloyd CNP, in collaboration with Aj Hammond MD whohas reviewed my assessment and plan. I, Aj Hammond MD , have reviewed the resident's note and agree with the assessment & plan of care as documented above. documented in this encounter Plan of Treatment Scheduled Orders Name Type Priority Associated Diagnoses Orde r Schedule Rheumatoid Factor Lab Routine Family history of rheumatoid arthritis Expected: 06/03/2024, Expires: 06/03/2025 CBC auto differential Lab Routine Family history of rheumatoid arthritis Expected: 06/03/2024 (Approximate), Expires: 06/03/2025 C-reactive Protein Lab Routine Family history of rheumatoid arthritis Expected: 06/03/2024 (Approximate), Expires: 06/03/2025 Sed Rate by Modified Westergren Lab Routine Family history of rheumatoid arthritis Expected: 06/03/2024, Expires: 06/03/2025 Comprehensive Metabolic Panel Lab Routine Family history of rheumatoid arthritis Expected: 06/03/2024 (Approximate), Expires: 06/03/2025 Cyclic Citrullinated Peptide (CCP) Antibody (IgG) Lab Routine Family history of rheumatoid arthritis Expected: 06/03/2024 (Approximate), Expires: 06/03/2025 JYOTSNA Screen,IFA, with Reflex to Titer and Pattern Lab Routine Family history of rheumatoid arthritis Expected: 06/03/2024 (Approximate), Expires: 06/03/2025 documented as of this encounter Procedures Procedure Name Priority Date/Time Associated Diagnosis Comments XR HAND 3+ VIEWS RIGHT Routine 06/03/2024 3:36 PM EDT Family history of rheumatoid arthritis XR HAND 3+ VIEWS LEFT Routine 06/03/2024 3:36 PM EDT Family history of rheumatoid arthritis documented in this encounter Results * XR Hand 3+ Views Left (06/03/2024 3:36 PM EDT) Anatomical Region Laterality Modality Upper Extremities, Hand Left Radiogra phic Imaging 06/03/2024 3:36 PM EDT Narrative 06/03/2024 4:09 PM EDT ?[facility] ?[address] ?[place] [address] ?XRay Report ? Signed ? Patient: Rolando,Ada ?MR#: [id number] ?? [id number] ? : 1985 ?Acct:[id number] ? Age/Sex: 38 / F ?ADM Date: 06/03/24 ? Loc: HO.HHCX ? Attending Dr: Grace Lloyd MANAGER PSYCHIATRY ? Ordering Physician: Grace Lloyd ?? Date of Service: 06/03/24 ?? Procedure(s): XR hand LT min 3V ?? Accession Number(s): [id number] ? cc: Grace Lloyd ? EXAMINATION: ?? XR HAND, LEFT ? CLINICAL INFORMATION: ?? persistent pain and finger swelling in middle and ring finger ? COMPARISON: ?? None available. ? TECHNIQUE: ?? PA, lateral, and oblique views of the left hand. ? FINDINGS: ?? The bones and soft tissues are normal. No fracture. Alignment is ?? anatomic. Joint spaces are maintained. No erosions or soft tissue ?? calcifications. ? XR/XR hand LT min 3V ?? IMPRESSION: ?? Normal left hand. ? Electronically signed by: ??Lucas Karmen MD ??06/03/2024 04:07 PM EDT RP ? Dictated By: ?Karmen,Lucas S MD ? Signed By: ?<Electronically signed by Lucas S Karmen, MD in OV> ?06/03/24 1607 ? DD/ 1536 ? TD/TT: 06/03/24 1538 ? Membership Sales Manager: MSM ? Procedure Note Rohini, Image - 06/03/2024 [facility] [address] [place] [address] XRay Report Signed Patient: Ada MarshallMR#: [id number] : 1985Acct:[id number] Age/Sex: 38 / FADM Date: 06/03/24 Loc: HO.HHCX Attending Dr: Grace Lloyd MANAGER PSYCHIATRY Ordering Physician: Grace Lloyd Date of Service: 06/03/24 Procedure(s): XR hand LT min 3V Accession Number(s): [id number] cc: Grace Lloyd EXAMINATION: XR HAND, LEFT CLINICAL INFORMATION: persistent pain and finger swelling in middle and ring finger COMPARISON: None available. TECHNIQUE: PA, lateral, and oblique views of the left hand. FINDINGS: The bones and soft tissues are normal. No fracture. Alignment is anatomic. Joint spaces are maintained. No erosions or soft tissue calcifications. XR/XR hand LT min 3V IMPRESSION: Normal left hand. Electronically signed by: Lucas Peraza MD 06/03/2024 04:07 PM EDT Dictated By: Lucas Peraza MD Signed By: <Electronically signed by Lucas Peraza MD in OV> 06/03/24 1607 DD/ 1536 TD/TT: 06/03/24 1538 Membership Sales Manager: HERBERTH Grace Lloyd [facility] IM XR PROCEDURES Final R esult * XR Hand 3+ Views Right (06/03/2024 3:36 PM EDT) Anatomical Region Laterality Modality Upper Extremities, Hand Right Radiogra phic Imaging 06/03/2024 3:36 PM EDT Narrative 06/03/2024 4:08 PM EDT ?[facility] ?[address] ?[place] [address] ?XRay Report ? Signed ? Patient: Rolando,Ada ?MR#: [id number] ?? [id number] ? : 1985 ?Acct:[id number] ? Age/Sex: 38 / F ?ADM Date: 03/21/25 ? Loc: HO.HHCX ? Attending Dr: Grace Lloyd MANAGER PSYCHIATRY ? Ordering Physician: Grace Lloyd ?? Date of Service: 06/03/24 ?? Procedure(s): XR hand RT min 3V ?? Accession Number(s): [id number] ? cc: Grace Lloyd ? EXAMINATION: ?? XR HAND, RIGHT ? CLINICAL INFORMATION: ?? Persistent pain in middle and 5th finger despite lack of ?? accident/injury ? COMPARISON: ?? None available. ? TECHNIQUE: ?? PA, lateral, and oblique views of the right hand. ? FINDINGS: ?? The bones and soft tissues are normal. No fracture. Alignment is ?? anatomic. Joint spaces are maintained. No erosions or soft tissue ?? calcifications. ? XR/XR hand RT min 3V ?? IMPRESSION: ?? Unremarkable right hand exam. ? Electronically signed by: ??Lucas Peraza MD ??06/03/2024 04:06 PM EDT RP ? Dictated By: ?Lucas Peraza MD ? Signed By: ?<Electronically signed by Lucas Peraza MD in OV> ?06/03/24 1606 ? DD/ 1536 ? TD/TT: 06/03/24 1538 ? Membership Sales Manager: MSM ? Procedure Note Rohini, Image - 06/03/[address] [address] XRay Report Signed Patient: Ada MarshallMR#: [id number] : 1985Acct:[id number] Age/Sex: 38 / FADM Date: 06/03/24 Loc: HO.HHCX Attending Dr: Grace Lloyd MANAGER PSYCHIATRY Ordering Physician: Grace Lloyd Date of Service: 06/03/24 Procedure(s): XR hand RT min 3V Accession Number(s): [id number] cc: Grace Lloyd EXAMINATION: XR HAND, RIGHT CLINICAL INFORMATION: Persistent pain in middle and 5th finger despite lack of accident/injury COMPARISON: None available. TECHNIQUE: PA, lateral, and oblique views of the right hand. FINDINGS: The bones and soft tissues are normal. No fracture. Alignment is anatomic. Joint spaces are maintained. No erosions or soft tissue calcifications. XR/XR hand RT min 3V IMPRESSION: Unremarkable right hand exam. Electronically signed by: Lucas Peraza MD 06/03/2024 04:06 PM EDT RP Dictated By: Lucas Peraza MD Signed By: <Electronically signed by Lucas Peraza MD in OV> 06/03/24 1606 DD/ 1536 TD/TT: 06/03/24 1538 Membership Sales Manager: HERBERTH [facility] BUDGET RECORD CLERK IMG XR PROCEDURES Final R esult documented in this encounter Visit Diagnoses Diagnosis Family history of rheumatoid arthritis- Primary Family history of arthritis documented in this encounter Care Teams Pin Sorter And Bagger Relationship Specialty Start Date End Date Melissa Grubbs MD [address] [place] [id number] PCP - General Family Medicine 04/13/19 documented as of this encounter
--- OUTSIDE RECORDS SUMMARY | 2024-06-03 17:23 | XMS_ITS | Encounter Summary ---
Author Organization [facility] Address [address] [place] [address] Care Team Providers Care Automotive Quality Manager Name Role Phone Melissa Grubbs MD Primary Care Provide r Encounter Details Date Type Department Care Team (Late st Contact Info) Description 05/27/2024 Population Health Risk Score [facility] ([facility]) Department [address] [facility] [address] [place] [phone] Provider, Population Health Generic Social History Tobacco Use Types Packs/Day Years [...] on filedocumented in this encounter Care Teams Automotive Quality Manager Relationship Specialty Start Date End Date Melissa Grubbs MD [address] [place] [id number] PCP - General Family Medicine 04/13/19 documented as of this encounter
--- OUTSIDE RECORDS SUMMARY | 2024-06-03 17:23 | XMS_ITS | Clinical Summary ---
Author Organization [facility] Address [address] [facility] [address] [place] [address] Care Team Providers Care Government Instructor Name Role Phone Melissa Grubbs MD Primary Care Provide r Allergies Active Allergy Reactions Criticality Noted Date Comments Acetaminophen 12/09/2018 Codeine 12/09/2018 Medications ibuprofen 800 MG tablet Take 1 tablet (800 mg) by mouth every 8 (eight) hours if needed for mild pain or moderate pain. 42 tablet 10/12/2023 Active Active Problems Problem Noted Date Diagnosed Date Mixed anxiety and depressive disorder 01/25/2024 Endometriosis 01/25/2024 Vitamin D deficiency 01/25/2024 Encounters Date Type Department Care Team Description 06/03/2024 3:15 PM EDT Office Visit [facility] MEDICINE [address] [place] [address] Grace Lloyd CNP Family history of rheumatoid arthritis (Primary Dx) 06/03/2024 Travel 06/02/2024 Telephone [facility] MEDICINE [address] [place] [address] Melissa Grubbs MD Chart Prep 06/02/2024 Telephone [facility] MEDICINE [address] [place] [address] Melissa Grubbs MD triage nurse 05/27/2024 Population Health Risk Score [facility] (C[facility]) Department [address] [phone] Provider, Population Health Generic 03/11/2024 Orders Only [facility] MEDICINE [address] [place] [address] Melissa Grubbs MD from Last 3 Months Family History Medical History Relation Name Comments Diabetes Maternal Grandmother Hypertension Mother Multiple sclerosis Mother Relation Name Status Comments Maternal Grandmother Mother Social History Tobacco Use Types Packs/Day Years Used Date Smoking Tobacco: Never Passive Smoke Exposure: Never Smokeless Tobacco: Never Tobacco Cessation:Counseling Given: Not Answered Comments Unknown Sex and Gender Information Value Date Recorded Sex Assigned at Female 01/13/2022 10:17 AM EDT Legal Sex Female 10:17 AM EDT Gender Identity Female 01/13/2022 10:17 AM EDT Sexual Orientation Straight 01/13/2022 10 :17 AM EDT Last Filed Vital Signs Vital Sign Reading Time Taken Comments Blood Pressure 108/73 06/03/2024 2:54 PM EDT Pulse 75 06/03/2024 2:54 PM EDT Temperature 36.6 ??C (97.8 ??F) 06/03/2024 2:54 PM ED T Respiratory Rate 18 06/03/2024 2:54 PM EDT Oxygen Saturation 99% 06/03/2024 2:54 PM EDT Inhaled Oxygen Concentration - - Weight 57.6 kg (127 lb) 06/03/2024 2:54 PM EDT Height 147.3 cm (4' 10 ) 10/12/2023 11:04 AM EDT Body Mass Index 26.54 10/12/2023 11:04 AM EDT Plan of Treatment Health Maintenance Due Date Last Done Comments Depression Screening 1985 SDOH Screening 1985 Alcohol/Substance Use Screening 1997 Family Planning (PISQ) 2000 Hepatitis B Vaccines (1 of 3 - 19+ 3-dose series) 2004 COVID-19 Vaccine () 11/15/2023 06/23/2020 Influenza Vaccine (#1) 2023 , 03/21/2019, 12/31/2015 Pap Smear 05/17/2024 05/17/2021 Tobacco Screening 01/24/2025 01/25/2024 Mammogram 03/11/2025 03/11/2024, 02/13, 02/17/2022, Additional history exists Cervical Cancer Screening 05/17/2026 HPV/Cotest 05/17/2026 05/17/2021 DTaP/Tdap/Td Vaccines (2 - Td or Tdap) 01/18/2030 01/19/2020 Zoster Vaccines (1 of 2) 07/09/2035 RSV Patients and Patients Aged 60 years or older (1 - 1-dose 75+ series) 2060 HIV Screening Completed 05/23/2021, 03/08/2020 Hepatitis C Screening Completed 05/23/2021 HIB Vaccines Aged Out No longer eligi ble based on patient's age to complete this topic HPV Vaccines Aged Out No longer eligi ble based on patient's age to complete this topic Hepatitis A Vaccines Aged Out No long er eligible based on patient's age to complete this topic IPV Vaccines Aged Out No longer eligi ble based on patient's age to complete this topic Meningococcal Vaccine Aged Out No twila corey eligible based on patient's age to complete this topic Pneumococcal Vaccine: Pediatrics (0 to 5 Years) and At-Risk Patients (6 to 49) Years) Aged Out No longer eligible based on patient's age to complete this topic RSV under 20 months Aged Out No longe r eligible based on patient's age to complete this topic Rotavirus Vaccines Aged Out No longer eligible based on patient's age to complete this topic Procedures Procedure Name Priority Date/Time Associated Diagnosis Comments XR HAND 3+ VIEWS LEFT Routine 06/03/2024 3:36 PM EDT Family history of rheumatoid arthritis XR HAND 3+ VIEWS RIGHT Routine 3:36 PM EDT Family history of rheumatoid arthritis BI MAMMOGRAM SCREENING TOMOSYNTHESIS BILATERAL Routine 03/11/2024 8:00 AM EST ZZZ HISTORICAL HEPATITIS C AB W/REFL TO HCV RNA, QN, PCR Routine 05/23/2021 2:20 PM EST HIV 1/2 ANTIGEN/ANTIBODY, FOURTH GENERATION W/RFL Routine 05/23/2021 2:20 PM EST THINPREP IMAGING PAP AND HPV MRNA E6/E7, WITH CT/NG, TRICHOMONAS Routine 05/17/2021 3:30 PM EST from Last 3 Months or Most Recently Relevant to Health Maintenance Results * XR Hand 3+ Views Right (06/03/2024 3:36 PM EDT) Anatomical Region Laterality Modality Upper Extremities, Hand Right Radiogra phic Imaging 06/03/2024 3:36 PM EDT Narrative 06/03/2024 4:08 PM EDT ?[facility] ?[address] ?[place] [address] ?XRay Report ? Signed ? Patient: Rolando,Ada ?MR#: [id number] ?? [id number] ? : 1985 ?Acct:[id number] ? Age/Sex: 38 / F ?ADM Date: 06/03/24 ? Loc: HO.HHCX ? Attending Dr: Grace Lloyd COFFEE SAMPLER ? Ordering Physician: Grace Lloyd ?? Date of Service: 06/03/24 ?? Procedure(s): XR hand RT min 3V ?? Accession Number(s): [id number] ? cc: Grace Lloyd ? EXAMINATION: ?? [...] 04:06 PM EDT RP ? Dictated By: ?Karmen,Lucas S MD ? Signed By: ?<Electronically signed by Lucas S Karmen, MD in OV> ?06/03/24 1606 ? DD/ 1536 ? TD/TT: 06/03/24 1538 ? Director Family: MSM ? Procedure Note Kristine Nova - 06/03/2024 [facility] [address] [place] [address] XRay Report Signed Patient: RolandoAbdiellisa#: [id number] : 1985Acct:[id number] Age/Sex: 38 / FADM Date: 06/03/24 Loc: HO.HHCX Attending Dr: Grace Lloyd COFFEE SAMPLER Ordering Physician: Grace Lloyd Date of Service: 06/03/24 Procedure(s): XR hand RT min 3V Accession Number(s): [id number] cc: Grace Lloyd EXAMINATION: XR HAND, RIGHT [...] 06/03/24 1606 DD/ 1536 TD/TT: 06/03/24 1538 Director Family: HERBERTH Grace Lloyd IT SECURITY ANALYST IMG XR PROCEDURES Final R esult * XR Hand 3+ Views Left (06/03/2024 3:36 PM EDT) Anatomical Region Laterality Modality Upper Extremities, Hand Left Radiogra phic Imaging 06/03/2024 3:36 PM EDT Narrative 06/03/2024 4:09 PM EDT ?[facility] ?[address] ?[place] [address] ?XRay Report ? Signed ? Patient: Rolando,Ada ?MR#: [id number] ?? [id number] ? : 1985 ?Acct:[id number] ? Age/Sex: 38 / F ?ADM Date: 03/21/25 ? Loc: HO.HHCX ? Attending Dr: Grace Lloyd COFFEE SAMPLER ? Ordering Physician: Grace Lloyd ?? Date of Service: 06/03/24 ?? Procedure(s): XR hand LT min 3V ?? Accession Number(s): [id number] ? cc: Grace Lloyd ? EXAMINATION: ?? [...] left hand. ? Electronically signed by: ??Lucas Peraza MD ??06/03/2024 04:07 PM EDT RP ? Dictated By: ?Lucas Peraza MD ? Signed By: ?<Electronically signed by Lucas Peraza MD in OV> ?06/03/24 1607 ? DD/ 1536 ? TD/TT: 06/03/24 1538 ? Director Family: MSM ? Procedure Note Kristine Nova - 06/03/[address] [address] XRay Report Signed Patient: Ada MarshallMR#: [id number] : 1985Acct:[id number] Age/Sex: 38 / FADM Date: 06/03/24 Loc: HO.HHCX Attending Dr: Grace Lloyd COFFEE SAMPLER Ordering Physician: Grace Lloyd Date of Service: 06/03/24 Procedure(s): XR hand LT min 3V Accession Number(s): [id number] cc: Grace Lloyd EXAMINATION: XR HAND, LEFT [...] 06/03/24 1607 DD/ 1536 TD/TT: 06/03/24 1538 Director Family: HERBERTH us Grace Lloyd IT SECURITY ANALYST IMG XR PROCEDURES Final R esult * BI Mammogram Screening Tomosynthesis Bilateral (03/11/2024 8:00 AM EST) Anatomical Region Laterality Modality Breast Bilateral Mammography 03/11/2024 8:00 AM EST Narrative 03/23/2024 8:04 AM EST ? [facility] [place] ? [address] ?[place] [address] ? Mammography Report ? Signed ? Patient: Rolando,Ada ?MR#: [id number] ?? [id number] ? : 1985 ?Acct:[id number] ? Age/Sex: 38 / F ?ADM Date: 03/11/24 ? Loc: HO.MAMMO ? Attending Dr: Melissa Quezada MD ? Ordering Physician: Melissa Grubbs MD ?Results: ?? 1Negative ? Date of Service: 03/11/24 ?Follow Up: 1 Year From Orig ?? inal Mammogram ? Procedure(s): MM tomosynthesis screening BI ?? Accession Number(s): [id number] ? cc: Melissa Grubbs MD ? EXAMINATION: ?? MM SCREENING DIGITAL BREAST TOMOSYNTHESIS, BILATERAL ? CLINICAL INFORMATION: ? Screening. Asymptomatic. ? COMPARISON: ?? Mammography: Comparison is made with available priors ? TECHNIQUE: ?? Digital breast mammography with tomosynthesis is performed in both the ?? craniocaudal and mediolateral oblique views along with computer-aided ?? detection (CAD). ? FINDINGS: ?? The breasts are heterogeneously dense, which may obscure small masses ?? (ACR BI-RADS breast composition Category c). ? There are no significant masses, abnormal calcifications, or other ?? abnormalities. ? MM/MM tomosynthesis screening BI ?? IMPRESSION: ?? No mammographic evidence of malignancy. ? ASSESSMENT: ? BI-RADS BI-RADS 1 - Negative ? RECOMMENDATION: ?? Routine annual mammography screening. ? 1 year F/U ? This examination should not preclude the clinical evaluation of a ?? suspicious palpable abnormality. ? This patient's information was entered into a reminder system with a ?? target due date for their next mammogram. ? Electronically signed by: ??Binta Dumont DO ??03/23/2024 08:00 AM EST ? Dictated By: ?Binta Dumont DO ? Signed By: ?<Electronically signed by Binta Dumont, DO in OV> ? 03/23/24 0800 ? DD/ 0800 ? TD/TT: 03/11/24 0815 ? Director Family: ? Procedure Note Rohini, Image - 03/23/2024 [facility] [address] [place] [address] Dr. Aguayo, JADEN [address] Mammography Report Signed Patient: Roverto Marshall#: [id number] : 1985Acct:[id number] Age/Sex: 38 / FADM Date: 03/11/24 Loc: HO.MAMMO Attending Dr: Melissa Quezada MD Ordering Physician: Melissa Grubbsesults: 1Negative Date of Service: 03/11/24Follow Up: 1 Year From [facility] ina Mammogram Procedure(s): MM tomosynthesis screening BI Accession Number(s): [id number] cc: Melissa Grubbs MD EXAMINATION: MM SCREENING DIGITAL BREAST TOMOSYNTHESIS, BILATERAL CLINICAL INFORMATION: Screening. Asymptomatic. COMPARISON: Mammography: Comparison is made with available priors TECHNIQUE: Digital breast mammography with tomosynthesis is performed in both the craniocaudal and mediolateral oblique views along with computer-aided detection (CAD). FINDINGS: The breasts are heterogeneously dense, which may obscure small masses (ACR BI-RADS breast composition Category c). There are no significant masses, abnormal calcifications, or other abnormalities. MM/MM tomosynthesis screening BI IMPRESSION: No mammographic evidence of malignancy. ASSESSMENT: BI-RADS BI-RADS 1 - Negative RECOMMENDATION: Routine annual mammography screening. 1 year F/U This examination should not preclude the clinical evaluation of a suspicious palpable abnormality. This patient's information was entered into a reminder system with a target due date for their next mammogram. Electronically signed by: Binta Dumont DO 03/23/2024 08:00 AM EST Dictated By: Binta Dumont DO Signed By: <Electronically signed by Binta Dumont DO in OV> 03/23/24 0800 DD/ 0800 TD/TT: 03/11/24 0815 Director Family: Melissa Quezada MD IM BI PROCEDURES Yousuf ally Result - Final * HEPATITIS C AB W/REFL TO HCV RNA, QN, PCR (05/23/2021 2:20 PM EST) HEPATITIS C ANTIBODY NON-REACT KIKI NON-REACT KIKI [facility] INDEX 0.01 <1.00 [facility] Comment: ?? HCV antibody was non-reactive. There is no laboratory ?? evidence of HCV infection. ?? In most cases, no further action is required. However, if recent HCV exposure is suspected, a test for HCV RNA (test code 92507) is suggested. ?? For additional information please refer to http://education.[employer]/faq/HTP44m1 (This link is being provided for informational/ educational purposes only.) ?? 05/23/2021 2:20 PM EST Melissa Quezada MD HISTORICAL/NON ORDERA BLE LABS Final Result Performing Organization Address [facility] Co de Phone Number [facility] [address] [place] [address], * HIV 1/2 ANTIGEN/ANTIBODY,FOURTH GENERATION W/RFL (05/23/2021 2:20 PM EST) HIV-1/2 ANTIGEN AND ANTIBODIES, 4TH GENERATION W/ REFLEX NON-REACT KIKI NON-REACT KIKI [facility] Comment: HIV-1 antigen and HIV-1/HIV-2 antibodies were not detected. There is no laboratory evidence of HIV infection. ?? PLEASE NOTE: This information has been disclosed to you from records whose confidentiality may be protected by state law. ??If your state requires such protection, then the state law prohibits you from making any further disclosure of the information without the specific written consent of the person to whom it pertains, or as otherwise permitted by law. A general authorization for the release of medical or other information is NOT sufficient for this purpose. ? For additional information please refer to http://education.[employer]/faq/MHI735 (This link is being provided for informational/ educational purposes only.) ? The performance of this assay has not been clinically validated in patients less than 2 years old. ?? 05/23/2021 2:20 PM EST Melissa Quezada MD LAB BLOOD ORDERABLES Final Result Performing Organization Address [facility] Co de Phone Number [facility] [address] [place] [address], * (ABNORMAL) THINPREP TIS PAP AND HPV mRNA E6/E7, CT/NG, TRICH (05/17/2021 3:30 PM EST) Chlamydia trachomatis RNA, TMA, Urogenital NOT DETECTED NOT DETECTED [facility] Clinical Information: None given [facility] COMMENT SEE COMMENT [facility] Comment: The analytical performance characteristics of this assay, when used to test SurePath(TM) specimens have been determined by [employer]. The modifications have not been cleared or approved by the FDA. This assay has been validated pursuant to the CLIA regulations and is used for clinical purposes. ?? For additional information, please refer to https://[employer]/faq/HKC594 (This link is being provided for information/ educational purposes only.) ?? COMMENT SEE COMMENT [facility] Comment: EXPLANATORY NOTE: ? The Pap is a screening test for cervical cancer. It is ?? not a diagnostic test and is subject to false negative ?? and false positive results. It is most reliable when a ?? satisfactory sample, regularly obtained, is submitted ?? with relevant clinical findings and history, and when ?? the Pap result is evaluated along with historic and ?? current clinical information. ?? COMMENT: SEE COMMENT [facility] Comment: This case could not be evaluated with computer assisted technology. The slide was manually screened according to routine procedures. Event Staff Member: SEE COMMENT [facility] Comment: DCR, CT(ASCP) CT screening location: [address] ??[address] HPV nRNA E6/E7 Not Detected Not Detected [facility] Comment: Methodology: Dielectric Tester-Mediated Amplification This assay detects E6/E7 viral messenger RNA (mRNA) from 14 high-risk HPV types (16,18,31,33,35,39,45,51,52,56,58,59,66,68). ? The analytical performance characteristics of this assay have been determined by [employer]. The modifications have not been cleared or approved by the FDA. This assay has been validated pursuant to the CLIA regulations and is used for clinical purposes. ?? For additional information, please refer to http://[employer]/faq/IWO288x7 (This link if provided for information/ educational purposes only.) Infection Shift in vaginal marga suggestive of bacterial vaginosis. [facility] Interpretation/Re sult: Negative for intraepithelial lesion or malignancy. [facility] LMP: NONE GIVEN [facility] Neisseria gonorrhoeae RNA, TMA, Urogenital NOT DETECTED NOT DETECTED [facility] Prev. BX: NONE GIVEN [facility] Prev. PAP: NONE GIVEN [facility] Review Event Staff Member: SEE COMMENT [facility] Comment: SXA, CT(ASCP) CT screening location: [address] ??[address] SOURCE: None given [facility] Statement Of Adequacy: SEE COMMENT [facility] Comment: Satisfactory for evaluation. Endocervical/transformation zone component absent. Age and/or menstrual status not provided Trichomonas vaginalis, QL, TMA, PAP Vial DETECTED(A) NOT DETECTED [facility] Comment: The analytical performance characteristics of this assay have been determined by [employer]. The modifications have not been cleared or approved by the FDA. This assay has been validated pursuant to the CLIA regulations and is used for clinical purposes. ?? For additional information, please refer to http://education.[employer]/ faq/Trichomonastma (This link is being provided for information/ educational purposes only.) ?? 05/17/2021 3:30 PM EST Melissa Quezada MD LAB PATHOLOGY ORDERAB LES Final Result [facility] [address] from Last 3 Months or Most Recently Relevant to Health Maintenance Insurance [facility] C3 Care Teams Government Instructor Relationship Specialty Start Date End Date Melissa Grubbs MD [address] [place] [id number] PCP - General Family Medicine 04/13/19
[2024-06-03 17:44] LABS: MANUAL DIFF FLAG NO
[2024-06-03 17:54] LABS: Basophils Percent Auto 0.4 % (0-2); Eosinophils Absolute Auto 0.2 X10*3/uL (0.0-0.4); Eosinophils Percent Auto 2.7 % (0-4); Hematocrit 38.3 % (37.0-47.0); Hemoglobin 13.1 g/dl (12.0-16.0); Imm Gran Abs Auto 0.03 X10*3/uL (0.00-0.03); Imm Gran Pct Auto 0.4 % (0.0-0.4); Lymphocytes Absolute Auto 2.2 X10*3/uL (1.2-4.9); Lymphocytes Percent Auto 27.7 % (20-40); Mean Corpuscular HGB Conc 34.2 g/dl (31.0-35.0); Mean Corpuscular Hemoglobin 33.4 pg (27.0-33.0); Mean Corpuscular Volume 97.7 fL (80.0-98.0); Mean Platelet Volume 9.8 fL (9.4-12.3); Monocytes Absolute Auto 0.5 X10*3/uL (0.1-1.2); Monocytes Percent Auto 6.7 % (2-11); Neutrophils Percent Auto 62.1 % (45-73); Platelet Count 189 X10*3/uL (160-400); Red Blood Count 3.92 X10*6/uL (4.20-5.50); Red Cell Distribution Width 12.6 % (11.0-16.0); White Blood Count 8.1 X10*3/uL (4.8-10.8)
[2024-06-03 18:12] LABS: Rheumatoid Factor < 13.0 IU/mL (<15.0)
[2024-06-03 18:17] LABS: Alanine Aminotransferase 31 U/L (0-31); Albumin Level 4.5 g/dL (3.5-5.0); Alkaline Phosphatase 80 U/L (39-117); Anion Gap 10 (12-20); Aspartate Amino Transferase 27 U/L (5-31); Bilirubin Total 0.3 mg/dL (0.0-1.0); Blood Urea Nitrogen 11 mg/dL (9-16); C Reactive Protein 0.15 mg/dL (< or = 0.50); Carbon Dioxide 23 mmol/L (22-29); Chloride 111 mmol/L (96-108); Estimated Glomerular Filt Rate > 60; Glucose Random 90 mg/dL (60-115); Potassium 3.9 mmol/L (3.3-5.1); Sodium 140 mmol/L (135-145); Total Protein 7.4 g/dL (6.5-8.0)
[2024-06-03 18:33] LABS: Erythrocyte Sedimentation Rate 6 MM/HR (0-20)
[2024-06-07 10:39] LABS: Cyclic Citrullinated Peptide <16 UNITS
== END 2024-06-03 15:36 | disposition home or self-care (01) ==
LOC: HO.HHCX 15:35
DX: Z82.61 Family history of arthritis (principal)
CPT/HCPCS: 36415; 73130; 80053; 85025; 85652; 86038; 86140; 86200; 86431

== ENCOUNTER → 2024-06-03 15:36 | Outpatient (BNV) | payer MEDICAID, SELFPAY | PROVIDERS: Visit Provider Radiology Diagnostic Radiology | DX: R22.32 Localized swelling, mass and lump, left upper limb (principal); R22.31 Localized swelling, mass and lump, right upper limb | CPT/HCPCS: 73130 ==

== ENCOUNTER 2024-06-03 15:45 | Outpatient (REF) | payer MEDICAID, SELFPAY | END 2024-06-03 15:46 | disposition home or self-care (01) | LOC: HO.HHCL 15:45 | DX: Z13.89 Encounter for screening for other disorder (principal) ==

== ENCOUNTER 2025-02-23 13:52 | Outpatient (REF) | payer MEDICAID, SELFPAY ==
--- OUTSIDE RECORDS SUMMARY | 2025-02-23 21:08 | XMS_ITS | Encounter Summary ---
Author Organization [employer] Address [address] [facility] [address] [place] [address] Care Team Providers Care Power Tool Repair Technician Name Role Phone Melissa Grubbs MD Primary Care Provide r Reason for Visit * Reason Onset Date Comments tb test 02/23/2025 Encounter Details Date Type Department Care Team ([facility] Contact Info) Description 02/23/2025 Telephone [facility] MEDICINE [address] [place], [place] [phone] Melissa Grubbs MD [address] [place], [place] [phone] tb test Social History Tobacco Use Types Packs/Day Years [...] encounter Miscellaneous Notes * Telephone Encounter - Katherine Weir RN - 02/23/2025 9:21 AM EST TC placed to patient [phone] in regards to below message. Patient reports she needs Tspot for work purposes and denies previous positive screening. RN has placed BW order and advised patient shecan come to the lab at her convenience. Patient to f/u PRN. * Telephone Encounter - Doretha Morales - 02/23/2025 8:31 AM EST Tc from pt requesting to schedule tuberculosis test . Contact pt at [phone] documented in this encounter Plan of Treatment Upcoming Encounters Date Type Department Care Team (Late st Contact Info) Description 03/03/2025 9:15 AM EST Office Visit [facility] MEDICINE [address] [place] [phone] Dayanara Molina MD [address] [place] [address] Scheduled Orders Name Type Priority Associated Diagnoses Orde r Schedule T-SPOT .TB Lab Routine Encounter for screening for respiratory tuberculosis Expected: 02/23/2025 (Approximate), Expires: 02/23/2026 documented as of this encounter Visit Diagnoses Diagnosis Encounter for screening for respiratory tuberculosis documented in this encounter Care Teams Power Tool Repair Technician Relationship Specialty Start Date End Date Melissa Grubbs MD [address] [place] [phone] PCP - General Family Medicine 04/13/19 documented as of this encounter
--- OUTSIDE RECORDS SUMMARY | 2025-02-23 21:08 | XMS_ITS | Clinical Summary ---
Author Organization [employer] Address [address] [facility] [address] [place] [address] Care Team Providers Care Cylinder Press Feeder Name Role Phone Melissa Grubbs MD Primary [...] Encounters Date Type Department Care Team Description 02/23/2025 Telephone [facility] MEDICINE [address] [place] [phone] Melissa Grubbs MD tb test from Last 3 Months Family History Medical [...] 75 06/03/2024 2:54 PM EDT Temperature 36.6 C (97.8 F) 06/03/2024 2:54 PM EDT Respiratory Rate 18 06/03/2024 2:54 PM EDT Oxygen Saturation 99% 06/03/2024 2:54 PM EDT Inhaled Oxygen Concentration - - Weight 57.6 kg (127 lb) 06/03/2024 2:54 PM EDT Height 147.3 cm (4' 10 ) 10/12/2023 11:04 AM EDT Body Mass Index 26.54 10/12/2023 11:04 AM EDT Plan of Treatment Upcoming Encounters Date Type Department Care Team (Late st Contact Info) Description 03/03/2025 9:15 AM EST Office Visit [facility] MEDICINE [address] [place] [address] Dayanara Molina MD [address] [place], [place] [phone] Health Maintenance Due Date Last Done Comments Depression Screening 1985 SDOH Screening 1985 Disability Screening 1985 Alcohol/Substance Use Screening 1997 Family Planning (PISQ) 2000 HPV Vaccines (1 - 3-dose series) 2000 Hepatitis B Vaccines (1 of 3 - 19+ 3-dose series) 2004 COVID-19 Vaccine (2 - season) 2024 06/23/2020 Influenza Vaccine (#1) 2024 , 03/21/2019, 12/31/2015 Tobacco Screening 01/24/2025 01/25/2024 Mammogram 03/11/2025 03/11/2024, 02/13, 02/17/2022, Additional history exists Cervical Cancer Screening 05/17/2026 HPV/Cotest 05/17/2026 05/17/2021 Pap Smear 05/17/2026 05/17/2021 DTaP/Tdap/Td Vaccines (2 - Td [...] patient's age to complete this topic Meningococcal B Vaccine Aged Out No l onger eligible based on patient's age to complete this topic Meningococcal Vaccine Aged Out No twila corey eligible based on patient's age to complete this topic Pneumococcal Vaccine: Pediatrics (0 to 5 Years) and At-Risk Patients (6 to 49) Years Aged Out No longer eligible based on patient's age to complete this topic RSV under 20 months Aged Out No longe r eligible based on patient's age to complete this topic Rotavirus Vaccines Aged Out No longer eligible based on patient's age to complete this topic Procedures Procedure Name Priority Date/Time Associated Diagnosis Comments BI MAMMOGRAM SCREENING TOMOSYNTHESIS BILATERAL Routine 03/11/2024 [...] Recently Relevant to Health Maintenance Results * BI Mammogram Screening Tomosynthesis Bilateral (03/11/2024 8:00 AM EST) Anatomical Region Laterality Modality Breast Bilateral Mammography 03/11/2024 8:00 AM EST Narrative 03/23/2024 8:04 AM EST [facility] [address] [place] [address] Mammography Report Signed Patient: Ada Marshall MR#: [id number] : 1985 Acct:[id number] Age/Sex: 38 / F ADM Date: 03/11/24 Loc: HO.MAMMO Attending Dr: Melissa Quezada MD Ordering Physician: Melissa Grubbs MD Results: 1Negative Date of Service: 03/11/24 Follow Up: 1 Year From Orig inal Mammogram Procedure(s): MM tomosynthesis screening BI Accession Number(s): [id number] cc: Melissa Grubbs MD EXAMINATION: MM SCREENING [...] by: Binta Dumont DO 03/23/2024 08:00 AM [facility] Dictated By: Binta Dumont DO Signed By: <Electronically signed by Binta Dumont DO in OV> 03/23/24 0800 DD/ 0800 TD/TT: 03/11/24 0815 Steel Post Installer Supervisor: Procedure Note Donotuseinterpreter, Image - 03/23/2024 [facility] [address] [place] [address] Dr. Aguayo, JADEN [address] Mammography Report Signed Patient: Ada MarshallMR#: [id number] : 1985Acct:[id number] Age/Sex: 38 / FADM Date: 03/11/24 Loc: HO.MAMMO Attending Dr: Melissa Quezada MD Ordering Physician: Melissa Grubbs MDResults: 1Negative Date of Service: 03/11/24Follow Up: 1 Year From Orig inal Mammogram Procedure(s): MM tomosynthesis screening BI Accession Number(s): [id number] cc: Melissa Grubbs MD EXAMINATION: MM SCREENING [...] 03/23/24 0800 DD/ 0800 TD/TT: 03/11/24 0815 Steel Post Installer Supervisor: Melissa Quezada MD IMG BI PROCEDURES Yousuf ally Result - Final * HEPATITIS C AB W/REFL TO HCV RNA, QN, PCR (05/23/2021 2:20 PM EST) HEPATITIS C ANTIBODY NON-REACT KIKI NON-REACT KIKI [facility] INDEX 0.01 <1.00 [facility] Comment: HCV antibody was non-reactive. There is no laboratory evidence of HCV infection. In most cases, no further action is required. However, if recent HCV exposure is suspected, a test for HCV RNA (test code 74944) is suggested. For additional information please refer to http://education.Liquiverse/faq/RCW69b8 (This link is being provided for informational/ educational purposes only.) 05/23/2021 2:20 PM EST us Melissa Quezada MD HISTORICAL/NON ORDERA BLE LABS Final Result Performing Organization Address [facility] de Phone Number [facility] [address] [place] [address], * HIV 1/2 ANTIGEN/ANTIBODY,FOURTH GENERATION W/RFL (05/23/2021 2:20 PM EST) Pathologist [facility] HIV-1/2 ANTIGEN AND ANTIBODIES, 4TH GENERATION W/ REFLEX NON-REACT KIKI NON-REACT KIKI [facility] Comment: HIV-1 antigen and HIV-1/HIV-2 antibodies were not detected. There is no laboratory evidence of HIV infection. PLEASE NOTE: This information has been disclosed to you from records whose confidentiality may be protected by state law. If your state requires such protection, then the state law prohibits you from making any further disclosure of the information without the specific written consent of the person to whom it pertains, or as otherwise permitted by law. A general authorization for the release of medical or other information is NOT sufficient for this purpose. For additional information please refer to http://education.[employer].Cream Style/faq/TTA907 (This link is being provided for informational/ educational purposes only.) The performance of this assay has not been clinically validated in patients less than 2 years old. 05/23/2021 2:20 PM EST Melissa Quezada MD LAB BLOOD ORDERABLES Final Result Performing Organization Address [facility] Co de Phone Number [facility] [address] [place] [address], [place] * (ABNORMAL) THINPREP TIS PAP AND HPV mRNA E6/E7, CT/NG, TRICH (05/17/2021 3:30 PM EST) Pathologist [facility] Chlamydia trachomatis RNA, TMA, Urogenital NOT DETECTED NOT DETECTED [facility] Clinical Information: None given [facility] COMMENT SEE COMMENT [facility] Comment: The analytical performance characteristics of this assay, when used to test SurePath(TM) specimens have been determined by [facility]. The modifications have not been cleared or approved by the FDA. This assay has been validated pursuant to the CLIA regulations and is used for clinical purposes. For additional information, please refer to https://Manzuo.com.Liquiverse/faq/BLI034 (This link is being provided for information/ educational purposes only.) COMMENT SEE COMMENT [facility] Comment: EXPLANATORY NOTE: The Pap is a screening test for cervical cancer. It is not a diagnostic test and is subject to false negative and false positive results. It is most reliable when a satisfactory sample, regularly obtained, is submitted with relevant clinical findings and history, and when the Pap result is evaluated along with historic and current clinical information. Comment: SEE COMMENT [facility] Comment: This case could not be evaluated with computer assisted technology. The slide was manually screened according to routine procedures. Vb Net Programmer: SEE COMMENT [facility] Comment: DCR, CT(ASCP) CT screening location: [place] [address] HPV nRNA E6/E7 Not Detected Not Detected [facility] Comment: Methodology: Distance Learning Unit Leader-Mediated Amplification This assay detects E6/E7 viral messenger RNA (mRNA) from 14 high-risk HPV types (16,18,31,33,35,39,45,51,52,56,58,59,66,68). The analytical performance characteristics of this assay have been determined by [facility]. The modifications have not been cleared or approved by the FDA. This assay has been validated pursuant to the CLIA regulations and is used for clinical purposes. For additional information, please refer to http://Manzuo.com.Liquiverse/faq/XOL281v5 (This link if provided for information/ educational purposes only.) Infection Shift in vaginal marga suggestive of bacterial vaginosis. [facility] Interpretation/Re sult: Negative for intraepithelial lesion or malignancy. [facility] LMP: NONE GIVEN [facility] Neisseria gonorrhoeae RNA, TMA, Urogenital NOT DETECTED NOT DETECTED [facility] Prev. BX: NONE GIVEN [facility] Prev. PAP: NONE GIVEN [facility] Review [employer]b Net Programmer: SEE COMMENT [facility] Comment: SXA, CT(ASCP) CT screening location: [place] [address] SOURCE: None given [facility] Statement Of Adequacy: SEE COMMENT [facility] Comment: Satisfactory for evaluation. Endocervical/transformation zone component absent. Age and/or menstrual status not provided Trichomonas vaginalis, QL, TMA, PAP Vial DETECTED(A) NOT DETECTED [facility] Comment: The analytical performance characteristics of this assay have been determined by [facility]. The modifications have not been cleared or approved by the FDA. This assay has been validated pursuant to the CLIA regulations and is used for clinical purposes. For additional information, please refer to http://education.Liquiverse/ faq/Trichomonastma (This link is being provided for information/ educational purposes only.) 05/17/2021 3:30 PM EST Melissa Quezada MD LAB PATHOLOGY ORDERAB LES Final Result [facility] [address] from Last 3 Months or Most Recently Relevant to Health Maintenance [facility] Care Teams Cylinder Press Feeder Relationship Specialty Start Date End Date Melissa Grubbs MD [address] [place] [address] PCP - General Family Medicine 04/13/19
== END 2025-02-23 13:53 ==
LOC: HO.HHCL 13:52
PROVIDERS: PCP Internal Medicine; Visit Provider Internal Medicine
DX: Z11.1 Encounter for screening for respiratory tuberculosis (principal)
CPT/HCPCS: 36415; 86481